=== PATIENT | male | born 1990 | race Caucasian/White ===

== ENCOUNTER 2017-12-08 14:26 | Emergency (ER) | payer SELFPAY ==
[~2017-12-08] VITALS: Wt 85.7 kg
[~2017-12-08 14:26] MED LIST: AMOXICILLIN500 MG PO; ATARAX25 MG PO; CLEOCIN150 MG PO; FLEXERIL5 MG PO; KENALOG0.1% TP; MEDROL DOSEPAK4 MG PO; MOTRIN800 MG PO; NKHM; PHENERGAN25 M1 PO; PREDNICOT20 MG PO; TRAMADOL HCL50 MG PO; TYLENOL W/CODEI1 TA2 PO; VICO10300 PO; VISTARIL25 M1 PO
[2017-12-08] MEDS ORDERED: CLINDAMYCIN150 MG PO (14:40)
[2017-12-08] MEDS ORDERED: NAPROSYN500 MG PO (14:40)
[2017-12-08] MEDS ORDERED: Peridex 473 ML473 ML PO (14:40)
== END 2017-12-08 14:54 | disposition home or self-care (01) ==
LOC: ED 14:26
DX: K02.9 Dental caries, unspecified (principal); R03.0 Elevated blood-pressure reading, without diagnosis of hypertension

== ENCOUNTER 2018-03-31 15:10 | Emergency (ER) | payer SELFPAY ==
[~2018-03-31] VITALS: Ht 175.2 cm; Wt 88.9 kg
[~2018-03-31 15:10] MED LIST changes: +CLINDAMYCIN150 MG PO; +NAPROSYN500 MG PO; +Peridex 473 ML473 ML PO
[2018-03-31 16:57] LABS: BASO # 0.1 10*3/uL (0.0-0.1); BASO % 0.9 % (0.0-1.0); EOS # 0.2 10*3/uL (0.0-0.4); EOS % 2.5 % (1.0-4.0); HEMATOCRIT 42.2 % (42.0-52.0); HEMOGLOBIN 14.4 g/dl (14.0-18.0); LYMPH % 26.3 % (27.0-41.0); MEAN CORPUSCULAR HGB 30.7 pg (27.0-31.0); MEAN CORPUSCULAR HGB CONC 34.1 g/dl (33.0-37.0); MEAN PLATELET VOLUME 9.7 fl (9.6-12.3); MONO # 0.6 10*3/uL (0.1-1.0); MONO % 7.9 % (3.0-9.0); NEUT # 4.7 10*3/uL (2.3-7.9); NEUT % 62.1 % (47.0-73.0); PLATELET COUNT AUTOMATED 227 10*3/uL (130-400); RED BLOOD COUNT 4.69 10*6/uL (4.50-5.90); RED CELL DISTRI WIDTH 12.2 % (0-14.5); WHITE BLOOD COUNT 7.6 10*3/uL (4.8-10.8)
[2018-03-31 17:12] LABS: ALKALINE PHOSPHATASE 59 U/L (45-117); BUN 15 mg/dl (7-24); CHLORIDE 106 mmol/L (98-107); CREATININE 1.18 mg/dL (0.70-1.30); POTASSIUM 3.9 mmol/L (3.5-5.1); SGOT/AST 15 IU/L (3-35); SGPT/ALT 23 U/L (12-78); SODIUM 140 mmol/L (136-145); TOTAL PROTEIN 7.6 gm/dL (6.4-8.2)
[2018-03-31] MEDS ORDERED: DOXYCYCLINE100 M3 PO (18:12)
== END 2018-03-31 18:15 | disposition home or self-care (01) ==
LOC: ED 15:10
PROVIDERS: Nurse Practitioner
DX: J18.9 Pneumonia, unspecified organism (principal); J32.1 Chronic frontal sinusitis

== ENCOUNTER 2020-05-30 14:34 | Emergency (ER) | payer SELFPAY ==
[~2020-05-30] VITALS: Ht 175.2 cm; Wt 93.0 kg
[~2020-05-30 14:34] MED LIST changes: +DOXYCYCLINE100 M3 PO
[2020-05-30] MEDS ORDERED: AUGMENTIN 875-875 MG PO (17:53)
== END 2020-05-30 18:10 | disposition home or self-care (01) ==
LOC: ED 14:34
DX: K02.9 Dental caries, unspecified (principal); S39.011A Strain of muscle, fascia and tendon of abdomen, initial encounter; Z79.899 Other long term (current) drug therapy; X58.XXXA Exposure to other specified factors, initial encounter; Y93.89 Activity, other specified; Y92.89 Other specified places as the place of occurrence of the external cause; Y99.8 Other external cause status

== ENCOUNTER → 2021-08-02 | Outpatient (CLI) | payer OTHER ==
[~2021-08-02] MED LIST changes: +AUGMENTIN 875-875 MG PO
== END | disposition home or self-care (01) ==
LOC: COVID19 16:36
PROVIDERS: ATTEND Internal Medicine
DX: Z11.52 Encounter for screening for COVID-19 (principal)

== ENCOUNTER 2024-01-09 08:55 | Emergency (ER) | payer SELFPAY ==
[~2024-01-09] VITALS: Ht 175.2 cm; Wt 87.1 kg
[2024-01-09] MEDS ORDERED: diphenhydrAMINE hydrochloride 50 MG/ML VIAL IV ONE (09:15)
[2024-01-09] MEDS ORDERED: Metoclopramide Hydrochloride 10 MG/2 ML AMP IV ONE (09:15)
[2024-01-09] MEDS ORDERED: TERBINAFINE15 GM TD (10:06)
[2024-01-09] MEDS ORDERED: LEVOFLOXACIN750 M2 PO (10:06)
== END 2024-01-09 10:45 | disposition home or self-care (01) ==
LOC: ED 08:55
DX: J40 Bronchitis, not specified as acute or chronic (principal); Z20.822 Contact with and (suspected) exposure to COVID-19; B35.4 Tinea corporis; Z88.1 Allergy status to other antibiotic agents